=== PATIENT | female | born 1965 | race Caucasian/White ===

== ENCOUNTER 2016-12-06 21:00 | Observation (INO) | payer SELFPAY ==
[2016-12-06] MEDS ORDERED: Sodium Chloride 0.9% 1,000 ML IV ONE (21:42)
[2016-12-06] MEDS ORDERED: Ketorolac 30 MG/ML SDV IVPUSH ONE (21:42)
--- NOTE | 2016-12-06 21:47 | EDM.PDOC ---
<Markie Arita - Last Filed: 12/06/16 21:45> ED HPI HEADACHE COMPLAINT - General Chief Complaint: Headache Stated Complaint: PT HAS HEADACHE,VOMIT,NUMBNESS ON RT SIDE OF BODY Time Seen by Provider: 12/06/16 21:30 Source of Information: Reports: Patient History Limitations: Reports: No limitations - History of Present Illness INITIAL COMMENTS - FREE TEXT/NARRATIVE: History of present illness: [51-year-old female presenting with onset of headaches that are inconsistent with any other headache she has ever had. Patient indicates that the headache has gotten increasingly worse and now she's experiencing intermittent right sided deficits such as weakness, paresthesia and it alters her gait. Patient denies any trauma and/or go to her head.] Review of systems: As per history of present illness and below otherwise all systems reviewed and negative. Past medical history: As per history of present illness and as reviewed below otherwise noncontributory. Surgical history: As per history of present illness and as reviewed below otherwise noncontributory. Social history: No reported history of drug or alcohol abuse. Family history: As per history of present illness and as reviewed below otherwise noncontributory. Physical exam: HEENT: Atraumatic, normocephalic, pupils reactive, negative for conjunctival pallor or scleral icterus, mucous membranes moist, throat clear, neck supple, nontender, trachea midline. Lungs: Clear to auscultation, breath sounds equal bilaterally, chest nontender. Heart: S1S2, regular, negative for clicks, rubs, or JVD. Abdomen: Soft, nondistended, nontender. Negative for masses or hepatosplenomegaly. Negative for costovertebral tenderness. Pelvis: Stable nontender. Genitourinary: Deferred. Rectal: Deferred. Extremities: Atraumatic, negative for cords or calf pain. Neurovascular unremarkable. Neuro: Awake, alert, oriented. Cranial nerves II through XII unremarkable. Cerebellum unremarkable. Motor and sensory unremarkable throughout. Exam nonfocal. Diagnostics: [CT of the head] Therapeutics: [IV, Toradol, ] Impression: [] Plan: [] Definitive disposition and diagnosis as appropriate pending reevaluation and review of above. - Related Data Allergies/ADRs: Allergies Allergy/AdvReac Type Severity Reaction Status Date / Time No Known Allergies Allergy Verified 12/06/16 21:21 Home Meds: Home Meds . [No Known Home Meds] 12/06/16 [History] Past Medical History [employer] History: Reports: Psychiatric History: Reports: Anxiety - Past Surgical History Female Surgical History: Reports: section Social & Family History - Family History Family Medical History: Noncontributory - Tobacco Use Smoking Status *Q: Never Smoker - Recreational Drug Use Recreational Drug Use: No ED ROS GENERAL - Review of Systems Review Of Systems: See Below (See history of present illness) - Physical Exam Exam: See Below (The history of present illness) Course - Vital Signs Last Recorded V/S: Last Vital Signs Temp 37.2 C 12/06/16 21:22 Pulse 96 12/06/16 21:22 Resp 16 12/06/16 21:22 BP 123/82 12/06/16 21:22 Pulse Ox 96 12/06/16 21:22 - Orders/Labs/Meds Orders: Active Orders 24 hr Category Date Time Status Communication Order [RC] STAT Care 12/07/16 00:25 Ordered EKG Documentation Completion [RC] STAT Care 12/07/16 00:23 Active CTA Head W & W/O Contrast [Ang Head] [CT] Stat Exams 12/06/16 23:08 Taken Head wo Cont [CT] Stat Exams 12/06/16 21:42 Taken Labs: Laboratory Tests 12/06/16 12/06/16 Range/Units 21:57 21:57 WBC 6.01 (4.0-11.0) K/uL RBC 4.38 (4.30-5.90) M/uL Hgb 12.8 (12.0-16.0) g/dL Hct 38.9 (36.0-46.0) % MCV 88.8 (80.0-98.0) fL MCH 29.2 (27.0-32.0) pg MCHC 32.9 (31.0-37.0) g/dL RDW Std Deviation 42.7 (28.0-62.0) fl RDW Coeff of Lyle 13 (11.0-15.0) % Plt Count 291 (150-400) K/uL MPV 9.50 (7.40-12.00) fL Neut % (Auto) 53.4 (48.0-80.0) % Lymph % (Auto) 37.9 (16.0-40.0) % [place] % (Auto) 7.2 (0.0-15.0) % Eos % (Auto) 1.2 (0.0-7.0) % Baso % (Auto) 0.3 (0.0-1.5) % Neut # (Auto) 3.2 (1.4-5.7) K/uL Lymph # (Auto) 2.3 (0.6-2.4) K/uL [place] # (Auto) 0.4 (0.0-0.8) K/uL Eos # (Auto) 0.1 (0.0-0.7) K/uL Baso # (Auto) 0.0 (0.0-0.1) K/uL Nucleated RBC % 0.0 /100WBC Nucleated RBCs # 0 K/uL Sodium 141 (136-146) mmol/L Potassium 3.8 (3.5-5.1) mmol/L Chloride 107 (98-110) mmol/L Carbon Dioxide 26 (21-31) mmol/L BUN 16 (6.0-23.0) mg/dL Creatinine 0.8 (0.6-1.5) mg/dL Est Cr Clr Drug Dosing 65.80 mL/min Estimated GFR (MDRD) > 60.0 ml/min Glucose 100 (60-110) mg/dL Calcium 9.0 (8.8-10.8) mg/dL Total Bilirubin 0.2 (0.1-1.5) mg/dL AST 13 (5-40) IU/L ALT 16 (8-54) IU/L Alkaline Phosphatase 97 (40-150) Total Protein 7.2 (6.0-8.0) g/dL Albumin 4.1 (3.5-5.0) g/dL Globulin 3.1 (2.0-3.5) g/dL Albumin/Globulin Ratio 1.3 Meds: Medications Discontinued Medications Generic Name Dose Route Start Last Admin Trade Name Freq PRN Reason Stop Dose Admin Sodium Chloride 1,000 mls @ 999 mls/hr 12/06/16 21:42 12/06/16 21:59 Normal Saline IV 12/06/16 22:42 999 mls/hr STAT ONE Administration Iopamidol 100 ml 12/07/16 00:10 12/07/16 00:11 Isovue Multipack-370 (76%) IVPUSH 12/07/16 00:11 100 ml ONETIME STA Administration Ketorolac Tromethamine 30 mg 12/06/16 21:42 12/06/16 22:00 Toradol IVPUSH 12/06/16 21:43 30 mg ONETIME ONE Administration Departure - Departure Disposition: Refer to Observation Clinical Impression: Paresthesias Headache Qualifiers: Headache type: unspecified Headache chronicity pattern: acute headache Intractability: not intractable Qualified Code(s): R51 - Headache Forms: ED Department Discharge - My Orders Last 24 Hours: My Active Orders 12/06/16 23:08 CTA Head W & W/O Contrast [Ang Head] [CT] Stat 12/07/16 00:23 EKG Documentation Completion [RC] STAT 12/07/16 00:25 Communication Order [RC] STAT - Assessment/Plan Last 24 Hours: My Active Orders 12/06/16 23:08 CTA Head W & W/O Contrast [Ang Head] [CT] Stat 12/07/16 00:23 EKG Documentation Completion [RC] STAT 12/07/16 00:25 Communication Order [RC] STAT <Sienna Bolaños - Last Filed: 12/07/16 00:30> ED HPI HEADACHE COMPLAINT - History of Present Illness INITIAL COMMENTS - FREE TEXT/NARRATIVE: This is Dr. Bolaños dictating an addendum note as the supervising physician on this case. I agree with history and physical as above although the patient does not admit to me that she has had weakness on the right side just the numbness and tingling and occasional forgetfulness and dizziness. The headache is in acceptable area and she states that this has been on and off over the last one month. Patient had a CBC CMP and a CT scan of the head which have been reviewed by me and discussed with the patient and family at bedside. She currently feels better after the Toradol but reiterates that this is probably the worse headache that she's ever had although it did not start suddenly and has been more constant but is worse the last one to 2 days. She does agree that she has had numbness/ tingling on the right side of her entire body including the face . She declines any weakness at this time and on my evaluation her motor strength is 5/5 throughout all extremities and there is no evidence of any cranial nerve palsies. She has not had any trauma or falls. The patient looks very comfortable in the room but in light of her history we will proceed to CTA of the head and likely for admission pending that result and the patient's symptomatology. 0020: Patient and family at bedside are aware of the CTA of the head being negative and I have recommended to her because of the numbness/paresthesias that she should be admitted for neuro checks and an MRI tomorrow to rule out a thalamic stroke. She is agreeable to this care plan and I will discuss the case with our hospitalist Dr. Fine 0029: This was discussed with Dr. Fine who agrees with observation telemetry admission. I will perform EKG and formal NIHSS Impression: Headache improving subacute with right-sided paresthesias rule out thalamic stroke Departure - Departure Time of Disposition: 00:30 Condition: good
[2016-12-06 22:35] LABS: CHLORIDE,CL 107 mmol/L (98-110); SODIUM,NA 141 mmol/L (136-146)
[2016-12-07] MEDS ORDERED: Iopamidol 755 MG/ML 500 ML Multipack Bottle IVPUSH STA (00:10)
[2016-12-07] MEDS ORDERED: Acetaminophen 325 MG Tab PO PRN (02:05)
[2016-12-07] MEDS ORDERED: Ondansetron 4 MG/2 ML SDV IVPUSH PRN (02:05)
[2016-12-07] MEDS ORDERED: LORazepam 2 MG/ML MDV IVPUSH ONE (10:10)
--- NOTE | 2016-12-07 10:31 | CT ---
EXAM DATE: 12/07/16 PATIENT'S AGE: 51 Patient: ANGELICA LU Facility: [place], [place] Site . Site : 1965 Study: CT Head wo cont [id number]/11/2017 10:33:05 PM Ordering Physician: Doctor Phan Final Report: INDICATION: n/v, TECHNIQUE: CT Head without contrast. COMPARISON: None. FINDINGS: There is no sign of intracranial hemorrhage or mass effect. Ventricles and sulci are symmetric and midline. The chin-white differentiation is preserved. No abnormal intra-axial or extra-axial fluid collection. Retention cysts vs polyps within the imaged maxillary sinuses. No acute disease of the visualized paranasal sinuses and mastoid air cells. No fracture evident. No scalp hematoma/ laceration. IMPRESSION: No acute intracranial process. Dictated by: Chi Kaur MD @ 12/06/2016 22:52:34 (Electronic Signature) Report Signed by Proxy and Original Signed Document filed in the Medical Record. MTDD
[2016-12-07] MEDS ORDERED: Gadobutrol 7.5 mMOL/7.5 ML SDV IVPUSH STA (10:34)
--- NOTE | 2016-12-07 10:34 | CT ---
EXAM DATE: 12/07/16 PATIENT'S AGE: 51 Patient: ANGELICA LU Facility: [place], [place] Site . Site : 1965 Study: CT Head Angio [id number]/12/2017 12:06:39 AM Ordering Physician: Mami El Final Report: Indication: Severe headache, clinical concern for cerebral aneurysm. Technique: High-resolution axial CT images were acquired through the head following the rapid intravenous administration of iodinated contrast. Multiplanar MIPS of the cranial vasculature were performed as well. Comparison: Noncontrast head CT 12/06/2016. Findings: As correlated with the noncontrast CT, there is no intracranial hemorrhage or fluid collection. The chin-white matter differentiation is maintained. The ventricles are of normal morphology. The basal cisterns are clear. Mucous retention cysts are present in the maxillary sinuses. There is no bony erosion or remodeling. The orbits and mastoids are clear. There is normal filling of the intracranial vasculature. There is no large vessel occlusion or intracranial stenosis. No cerebral aneurysm or evidence for vascular malformation identified. 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 The dural venous sinuses are patent. Impression: No cerebral aneurysm as clinically questioned. No intracranial hemorrhage or other acute abnormality at CT/CTA. Dictated by Anthony Wilde MD @ Dec 07 2016 6:55AM (Electronic Signature) Report Signed by Proxy and Original Signed Document filed in the Medical Record. [facility] CENTERJason
--- NOTE | 2016-12-07 15:27 | PCM.HP ---
H&P History of Present Illness - General Date of Service: 12/07/16 Admit Problem/Dx: Headache with paresthesia Source of Information: Patient History Limitations: Reports: Language barrier (Patient is Lao-speaking) - History of Present Illness Initial Comments - Free Text/Narative: 51-year-old female is admitted with headache and right-sided paresthesia. Patient presented to the emergency room yesterday with a chief complaint of headache and right-sided body "numbness". Patient states that the headache has been off and on over the past month but yesterday became the worst that it has been over that time period. Patient notes tingling and numbness on the right side of her body including her arm, leg and face. Patient denies any weakness. She at times will be dizzy but denies any head trauma. Patient states that her gait is affected by these symptoms but she denies any falls in the past month. She has had headaches in the past but states that this headache is "different". She denies any vision problems associated with the headache. She denies speech problems, photophobia, nausea, vomiting with these headaches. She's not currently on any medications. There is no history of tobacco use or drug use. She denies any cardiac history. She does have a history of anxiety. She denies any chest pain, palpitations, shortness of breath, wheezing, cough, abdominal pain, N/V/C/D, fever, dysuria, hematuria. ER course: While in the emergency room the patient received a 1 L bolus of normal saline as well as a Toradol injection. Patient states that her headache felt better following the Toradol injection. She was neurologically intact while in the emergency room. Head CT was ordered and was unremarkable. CBC and CMP were unremarkable. Patient was admitted secondary to presenting symptoms for frequent neurological checks and to rule out stroke with MRI. headache Pain Score (Numeric/FACES): 0 - Related Data Allergies/Adverse Reactions: Allergies Allergy/AdvReac Type Severity Reaction Status Date / Time No Known Allergies Allergy Verified 12/06/16 21:21 Home Medications: Home Meds . [No Known Home Meds] 12/06/16 [History] Past Medical History [employer] History: Reports: Psychiatric History: Reports: Anxiety - Past Surgical History Female Surgical History: Reports: section Social & Family History - Family History Family Medical History: Noncontributory - Tobacco Use Smoking Status *Q: Never Smoker Second Hand Smoke Exposure: No - Recreational Drug Use Recreational Drug Use: No H&P Review of Systems - Review of Systems: Review Of Systems: See Below General: Reports: no symptoms HEENT: Reports: headaches (improved since ER treatment) Pulmonary: Reports: No Symptoms Cardiovascular: Reports: no symptoms Gastrointestinal: Reports: No symptoms Genitourinary: Reports: no symptoms Musculoskeletal: Reports: no symptoms Skin: Reports: no symptoms Psychiatric: Reports: no symptoms Neurological: Reports: Dizziness, Headache, Numbness (right side of body), Paresthesia (right side of body), Tingling (right side of body), Gait Disturbance Hematologic/Lymphatic: Reports: no symptoms Immunologic: Reports: no symptoms Exam - Exam Exam: See Below - Vital Signs Vital Signs: Last Vital Signs Temp 98.2 F 12/07/16 12:00 Pulse 72 12/07/16 12:00 Resp 16 12/07/16 12:00 BP 116/75 12/07/16 12:00 Pulse Ox 94 L 12/07/16 12:00 Weight: 179 lb 0.246 oz - Exam General: alert, oriented, cooperative HEENT: Conjunctiva clear, Hearing intact, Mucosa moist & pink, Nares patent, Normal nasal septum, PERRLA Neck: supple, trachea midline, 2 Lungs: Clear to auscultation, Normal respiratory effort Cardiovascular: regular rate, regular rhythm Abdomen: normal bowel sounds, soft Back Exam: normal inspection, full range of motion, NT Extremities: normal inspection, normal pulses. No: calf tenderness Peripheral Pulses: 2+: radial (L), radial (R) Skin: warm, dry, intact Neurological: cranial nerves intact, reflexes equal bilateral, strength equal bilateral, normal gait, normal speech, sensation intact Neuro Extensive - Mental Status: alert, oriented x3, normal mood/affect, normal cognition Neuro Extensive - Motor, Sensory, Reflexes: CN II-XII intact, normal gait, normal reflexes Psychiatric: alert, normal affect, normal mood - Patient Data Result Diagrams: 12/06/16 21:57 12/06/16 21:57 *Q Meaningful Use (ADM) - VTE *Q VTE Criteria *Q: - Stroke *Q Stroke Criteria *Q: - AMI *Q AMI Criteria *Q: - Problem List (1) Headache SNOMED Code(s): 78743770 ICD Code: R51 - HEADACHE Status: Acute Current Visit: Yes Qualifiers: Headache type: unspecified Headache chronicity pattern: acute headache Intractability: not intractable Qualified Code(s): R51 - Headache (2) Paresthesias SNOMED Code(s): 33793995 ICD Code: R20.2 - PARESTHESIA OF SKIN Status: Acute Current Visit: Yes Problem List Initiated/Reviewed/Updated: Yes Orders Last 24hrs: Active Orders 24 hr Category Date Time Status Assess Neurological Status [RC] Q4HR Care 12/07/16 02:05 Active Neuro Check [RC] Q4HR Care 12/07/16 02:05 Active Notify Provider Consults [RC] ASDIRECTED Care 12/07/16 13:25 Active Telemetry Monitoring [Cardiac Monitoring] [RC] Q8H Care 12/07/16 02:03 Active Consult to Physician [CONS] Routine Cons 12/07/16 13:25 Active Cardiac [Heart Healthy Diet] [DIET] Diet 12/07/16 Breakfast Active Brain w wo Cont [MR] Routine Exams 12/07/16 08:00 Taken SEDIMENTATION RATE AUTO [HEME] Routine Lab 12/07/16 15:04 Received Acetaminophen [Tylenol] Med 12/07/16 02:05 Active 650 mg PO Q4H PRN Ondansetron [Zofran] Med 12/07/16 02:05 Active 4 mg IVPUSH Q4H PRN Medication Orders Acetaminophen (Tylenol) 650 mg PO Q4H PRN PRN Reason: Headache/Pain Ondansetron HCl (Zofran) 4 mg IVPUSH Q4H PRN PRN Reason: Nausea/Vomiting Assessment/Plan Comment:: 51 year old female admitted with headache and paresthesia of the right side of her body. 1. Headache with right sided paresthesia: -headache resolved with IM toradol injection in ER. Head CT and Head angio CT both were unremarkable. -Patient went for MRI this morning. results pending. -patient is neurologically intact. -neuro exam q4hrs. Patient is on telemetry. -Dr. Cardenas from neurology has been consulted and will see the patient. Potential d/c tomorrow.
--- NOTE | 2016-12-07 15:29 | MR ---
EXAMINATION: MRI of the brain with and without contrast. TECHNIQUE: Multiplanar and multisequence imaging of the brain without and following the administrati on of 7.5 cc Gadavist. HISTORY: Rule out ischemic stroke. FINDINGS: Cerebral hemispheres and the deep nuclei are without hemorrhage, mass, edema, enhancement or atrophy . There are a few small subcortical and periventricular white matter FLAIR signal intensities noted . No abnormal diffusion restriction. No extraaxial collections or hemorrhage. Ventricular system is of normal size and configuration without hydrocephalus. No evidence for globe flattening, small ventricles or partially empty sella to suggest pseudotumor cerebri. Brainstem and cerebellum are without hemorrhage, mass, edema, gliosis, enhancement or atrophy. [place] basilar artery flow voids are intact. The otomastoid airspaces are clear. No internal auditory canal or cerebellopontine angle masses or enhancement. Mucous retention cysts are noted within the maxillary sinuses. Globes, optic nerves, orbital apices, optic chiasm, optic tracts, and visual cortices are unremarka ble. The pituitary and sella turcica are unremarkable. No meningeal enhancement. The craniocervical junction is unremarkable. No acute intracranial abnorm ality. No siderosis or evidence of vascular malformation. There is an indeterminate 1.4 cm enhancing area within the right frontal calvarium. IMPRESSION: 1. No intracranial findings. 2. Tiny multifocal subcortical periventricular white matter FLAIR signal intensities. Nonspecific, t his may represent age advanced small vessel ischemic changes, correlate clinically. 3. There is a small 1.4 cm enhancing area within the left frontal calvarium. This is not well charac terized on the recent CT and may represent a hemangioma however technically indeterminate.
[2016-12-07 16:02] VITALS: BP 126/69
[2016-12-07] MEDS ORDERED: Ondansetron 4 MG Tab.DIS PO PRN (16:05)
--- NOTE | 2016-12-07 17:52 | PCM.CONS ---
H&P History of Present Illness - General Date of Service: 12/07/16 Admit Problem/Dx: Headache with paresthesia - History of Present Illness Initial Comments - Free Text/Narative: She has been having daily headaches for a month. The pain is on the right side , pulsating. The pain has been fluctuating from medium to severe. She has nausea and vomiting. She has light and sound sensitivity. She started having right sided numbness about 2 months ago. The numbness has been constant for the last month. She started having headaches about 2 years ago. She was having about one / week prior to a month ago. Prior to headache, she would have impaired vision and forgetfulness prior to headache. They lasted 3-4 hours. She took Aleve, tramadol, which helped. She endorse problems with near vision for about 2 years. She has mild headache today. Toradol helped significantly. Both parents with bad headaches/migraines. She had menopause at age 35. She still has hot flashes. She has neck pain, back pain. She has taken some type of pain reliever such as ibuprofen for many years. headache Pain Score (Numeric/FACES): 0 - Related Data Allergies/Adverse Reactions: Allergies Allergy/AdvReac Type Severity Reaction Status Date / Time No Known Allergies Allergy Verified 12/06/16 21:21 Home Medications: Home Meds Topiramate [Topamax] 25 mg PO BEDTIME #60 tab 12/07/16 [Rx] Past Medical History [employer] History: Reports: Psychiatric History: Reports: Anxiety - Past Surgical History Female Surgical History: Reports: section Social & Family History - Family History Other Neurological Family History: Father had hydrocephalus. Mother with migraines/bad headaches - Tobacco Use Smoking Status *Q: Never Smoker Second Hand Smoke Exposure: No - Alcohol Use Alcohol Use History: No - Recreational Drug Use Recreational Drug Use: No H&P Review of Systems - Review of Systems: Review Of Systems: ROS reveals no pertinent complaints other than HPI. Exam - Exam Exam: See Below - Vital Signs Vital Signs: Last Vital Signs Temp 37.2 C 12/07/16 16:00 Pulse 84 12/07/16 16:00 Resp 18 12/07/16 16:00 BP 126/69 12/07/16 16:00 Pulse Ox 94 L 12/07/16 16:00 Weight: 81.2 kg - Exam Physical Exam Comments:: Constitutional: No acute distress Psychiatric: Mood/Affect: normal/appropriate Neurological: Mental Status: General: Normal activity, good hygiene, appropriate appearance. Level of consciousness: Awake, alert. Concentration/Attention Span: Normal. Comprehension/Praxis: Able to perform a three step command. Fund of Knowledge/memory: Adequate recent and remote recall. Language: Fluent and articulate without evidence of aphasia or dysarthria. Thought Content: Normal. Insight/Judgement: Normal. Cranial Nerves: Pupils equally round and reactive to light. Visual almaraz full to confrontation. Gaze conjugate, EOMI. Sensation intact and symmetric to light touch. Facial strength is full and symmetric. Palate elevates symmetrically. Normal shrug bilaterally. Tongue protrudes midline Motor: Normal tone in all groups. No drift. Power is 5/5 throughout proximal and distal muscles. Sensation: Sensation is decreased to pinprick right face/upper limb/lower limb. Vibratory sense intact. Deep tendon reflexes: Normoactive throughout. Plantar responses are flexor bilaterally. Coordination: Finger to nose, heel to powell and rapid alternating movements are intact. HEENT: Eyes: non icteric, Mouth: moist mucus membranes Cardiovascular: RRR, no obvious murmur Respiratory: clear lungs GI: non tender Skin: no visible rash - Patient Data Lab Results last 24 hrs: Laboratory Results - last 24 hr 12/07/16 Range/Units 15:04 ESR 20 (0-29) mm/hr Result Diagrams: 12/06/16 21:57 12/06/16 21:57 Imaging Impressions last 24 hrs: CTA head was normal. MRI brain T2/flair hyperintense foci in subcortical white matter, non specific can be seen with small vessel disease, sequelae of migraine. There was also a lesion in the left frontal calvarium noted, possible hemangioma. Consult PN Assessment/Plan (1) Paresthesias SNOMED Code(s): 66735127 Code(s): R20.2 - PARESTHESIA OF SKIN Current Visit: Yes (2) Headache SNOMED Code(s): 90844714 Code(s): R51 - HEADACHE Current Visit: Yes Qualifiers: Headache type: unspecified Headache chronicity pattern: acute headache Intractability: not intractable Qualified Code(s): R51 - Headache Problem List Initiated/Reviewed/Updated: Yes My Orders last 24 hours: 51 year old woman with 2 year history of episodic headache with migrainous features now with daily headache X 1 and right sided numbness. MRI brain, CTA were unrevealing. ESR was normal . Headache consistent with chronic daily migraine (except not yet 3 months), likely with component of analgesic overuse headache. Right side numbness likely part of migraine. Recommendations: -Start Topamax 25 mg daily X 1 week then increase to 25 mg BID -Counseled on medication over use, should limit to 1-2 days / week -f/u with me in 4 -6 weeks.
--- NOTE | 2016-12-08 14:47 | PCM.DCSUM1 ---
Discharge Summary - Hospital Course Free Text/Narrative:: Admission diagnosis: 1. headache with right sided paresthesia Discharge diagnosis: 1. Headache with right sided paresthesia, improved 51 year old female admitted with headache and right sided paresthesia. Head CT, CTA, and brain MRI were unremarkable. CBC, CMP, ESR were unremarkable. Patient was given an IM injection of Toradol while in the ER which improved her headache drastically. Dr. Cardenas, Neurology, was consulted and suggested this is most likely chronic daily migraine with a component of analgesic overuse. She suggested to prescribe Topamax as outpatient and to have the patient follow-up with her in 4-6 weeks. At discharge, the patient did not have a headache but did have some residual numbness in her right arm. - Discharge Data Discharge Date: 12/07/16 Discharge Disposition: Home, Self-Care 01 Condition: Fair - Discharge Diagnosis/Problem(s) (1) Headache SNOMED Code(s): 02602282 ICD Code: R51 - HEADACHE Status: Acute Qualifiers: Headache type: unspecified Headache chronicity pattern: acute headache Intractability: not intractable Qualified Code(s): R51 - Headache (2) Paresthesias SNOMED Code(s): 86203147 ICD Code: R20.2 - PARESTHESIA OF SKIN Status: Acute - Patient Summary/Data Consults: Consultations 12/07/16 13:25 Consult to Physician [CONS] Routine - Patient Instructions Diet: Usual Diet as Tolerated Activity: As Tolerated Driving: May Drive Today Showering/Bathing: May Shower Notify Provider of: Fever, Increased Pain, Nausea and/or Vomiting - Discharge Plan Prescriptions/Med Rec: Topiramate [Topamax] 25 mg PO BEDTIME #60 tab Home Medications: Home Meds Topiramate [Topamax] 25 mg PO BEDTIME #60 tab 12/07/16 [Rx] Patient Handouts: Paresthesia, Migraine Headache, [id number] Referrals: Amber Cardenas MD [Physician] - (Follow-up in 4-6 weeks.) - Discharge Summary/Plan Comment DC Time >30 min.: No Discharge Summary/Plan Comment: Admission diagnosis: 1. headache with right sided paresthesia Discharge diagnosis: 1. Headache with right sided paresthesia, improved 51 year old female admitted with headache and right sided paresthesia. Head CT, CTA, and brain MRI were unremarkable. CBC, CMP, ESR were unremarkable. Patient was given an IM injection of Toradol while in the ER which improved her headache drastically. Dr. Cardenas, Neurology, was consulted and suggested this is most likely chronic daily migraine with a component of analgesic overuse. She suggested to prescribe Topamax as outpatient and to have the patient follow-up with her in 4-6 weeks. At discharge, the patient did not have a headache but did have some residual numbness in her right arm. Discharge plan: 1. Prescribed Topamax 25mg daily for one week and then 25mg BID going forward. 2. F/u with Dr. Cardenas, Neurology, in 4-6 weeks. - Patient Data Vitals - Most Recent: Last Vital Signs Temp 99.0 F 12/07/16 16:00 Pulse 84 12/07/16 16:00 Resp 18 12/07/16 16:00 BP 126/69 12/07/16 16:00 Pulse Ox 94 L 12/07/16 16:06 Weight - Most Recent: 179 lb 0.246 oz I&O - Last 24 hours: Intake & Output 12/07/16 12/08/16 12/08/16 22:59 06:59 14:59 Intake Total 700 Output Total 600 Balance 100 Lab Results - Last 24 hrs: Laboratory Results - last 24 hr 12/07/16 Range/Units 15:04 ESR 20 (0-29) mm/hr Med Orders - Current: Current Medications Discontinued Medications Acetaminophen (Tylenol) 650 mg PO Q4H PRN PRN Reason: Headache/Pain Gadobutrol (Gadavist) 7.5 ml IVPUSH ONETIME STA Stop: 12/07/16 10:35 Last Admin: 12/07/16 10:35 Dose: 7.5 ml Sodium Chloride (Normal Saline) 1,000 mls @ 999 mls/hr IV STAT ONE Stop: 12/06/16 22:42 Last Admin: 12/06/16 21:59 Dose: 999 mls/hr Iopamidol (Isovue Multipack-370 (76%)) 100 ml IVPUSH ONETIME STA Stop: 12/07/16 00:11 Last Admin: 12/07/16 00:11 Dose: 100 ml Ketorolac Tromethamine (Toradol) 30 mg IVPUSH ONETIME ONE Stop: 12/06/16 21:43 Last Admin: 12/06/16 22:00 Dose: 30 mg Lorazepam (Ativan) 1 mg IVPUSH ONETIME ONE Stop: 12/07/16 10:11 Last Admin: 12/07/16 10:14 Dose: 1 mg Ondansetron HCl (Zofran) 4 mg IVPUSH Q4H PRN PRN Reason: Nausea/Vomiting Ondansetron HCl (Zofran Odt) 4 mg PO Q4H PRN PRN Reason: nausea, able to take PO *Q Meaningful Use (DIS) - VTE *Q VTE Criteria *Q: - Stroke *Q Stroke Criteria *Q: - AMI *Q AMI Criteria *Q:
== END 2016-12-07 18:30 | disposition home or self-care (01) ==
LOC: MW.ED 21:00 → MW.MS 12-07 01:03
PROVIDERS: ADMIT Internal Medicine; ATTEND Internal Medicine
DX: R51 Headache (principal); R20.9 Unspecified disturbances of skin sensation; F41.9 Anxiety disorder, unspecified; Z98.890 Other specified postprocedural states; Z79.899 Other long term (current) drug therapy
CPT/HCPCS: 36415; 70450; 70496; 70553; 80053; 85025; 85652; 93005; 96361; 96374; 96375; 99285; A9585; G0378; J1885; J2060; J7040; Q9967; 99284